=== PATIENT | male | born 1975 | race Caucasian/White ===

== ENCOUNTER 2024-09-20 14:55 | Emergency (ER) | payer OTHER, SELFPAY ==
[2024-09-20 14:59] VITALS: BP 162/106
[2024-09-20 15:56] VITALS: BMI 26.0
--- NOTE | 2024-09-20 16:42 | ED.GENMED ---
History of Present Illness
General
Chief Complaint: Musculo-Skeletal Complaint
Source: patient
Time Seen by Provider: 09/20/24 16:14
History of Present Illness
History of Present Illness:
49-year-old male with no significant past medical history presenting to the emergency department from outpatient x-ray which she had done ordered by his primary care provider for neck pain that he has been experiencing for the last 2-1/2 weeks.
Patient states his primary care's office told him that he needed to come to the emergency room for an MRI. Patient states that he was given naproxen and a muscle relaxant without much relief. States that he had been doing some heavy lifting prior
to the symptoms starting 2-1/2 weeks ago but denies any specific trauma. Patient does note pain will intermittently radiate down his left arm and have paresthesia to the left thumb, index and middle finger but does not have the paresthesia
currently. No headaches, fevers or infectious, visual disturbances, chest pain or any other concerns. Patient denies history of similar.
Past History
Past History
ED Past Medical History: None
ED Past Surgical History: None
Social History
Tobacco: Non-smoker
Alcohol: None
Drug: None
Personal: Single
Living: alone
Employment: Employed
Review of Systems
Review of Systems
All Other Systems: ROS reviewed and negative except as documented in HPI and ROS
Phy Exam
Physical Exam
Physical Exam:
GENERAL: Alert , in no apparent distress
EYE: conjunctiva clear
Head: Normocephalic atraumatic
NECK: Supple, no midline tenderness, limited range of motion especially when laterally turning to the left
ENT: mmm.
LUNGS: no acute respiratory distress
NEUROLOGICAL: Alert and oriented, moves all extremities x 4, 5 out of 5, bicep and tricep strength. 2+ biceps, triceps and brachioradialis deep tendon reflexes. Sensation grossly intact to light touch throughout all digits
SKIN: Warm and dry, skin intact.
MUSCULOSKELETAL: well perfused. Easily palpable radial pulse
PSYCH: Normal and appropriate interaction.
Scores
Heart Failure Risk
Heart Failure Risk Score: Not Applicable
Heart Score for Chest Pain Patients
STEMI patient?: Not applicable
Withdrawal Assessment of Alcohol
Withdrawal Assessment Completed?: Not applicable
Course
Vital Signs
Initial and Last Documented VS:
Initial Vital Signs
Temp Pulse Resp BP Pulse Ox
98.1 F 95 16 162/106 96
09/20/24 14:59 09/20/24 14:59 09/20/24 14:59 09/20/24 14:59 09/20/24 14:59
Last Documented Vital Signs
Temp Pulse Resp BP Pulse Ox
98.6 F 82 20 136/71 99
09/20/24 16:52 09/20/24 16:52 09/20/24 16:52 09/20/24 16:52 09/20/24 16:52
MDM/Problems Addressed
Differential Diagnosis Includes:
Disc herniation, nerve impingement, spinal stenosis, I do not have concern for infectious etiology
MDM/Problems Addressed:
49-year-old male presenting to the emergency department at the request of primary care provider after having x-ray done earlier today. Patient was unaware of these results. Based off my review it appears patient has degenerative disc disease at
C4-C7 with mild neuroforaminal narrowing. No fracture. Patient not exhibiting any acute neurologic claudication and is otherwise neurologically intact. At this time patient may need more advanced imaging but do not feel this needs to be completed
on an emergent basis. Patient expressed understanding. Will trial a steroid taper and Valium for muscle relaxation. Patient will follow-up with primary care provider. Information for orthopedics provided.
*Pulse Oximetry
Patient hypoxic: no
*Critical Care Note
Total Time (30-74mins, 75-104mins- exclusive of procedures): Not Applicable
Data Reviewed
Review of Other/Old Records Reveals: Records and Radiology Studies
ED Attending Note
-
Portions of this chart may have been created with voice recognition software.� Occasional wrong word or��sound alike� substitutions may have occurred due to the inherent limitations of voice recognition software.
Discharge Plan
Departure
Patient Disposition: Home (Routine Discharge)
Date of Disposition: 09/20/24
Time of Disposition: 16:42
Patient with high blood pressure during this ER visit?: Yes
Discharge Problem:
Cervical radiculopathy
Instructions: Neck Pain ED
Prescriptions:
New
methylprednisolone [Medrol (Ralf)] 4 mg tablets,dose pack
4 mg PO DIRECTED Qty: 21 0RF
diazepam [Valium] 5 mg tablet
5 mg PO BID PRN (Reason: muscle spasm) Qty: 6 0RF
Referrals:
Bowen Feldman MD [Active] - (Ortho - Call for appointment)
Hai Patel DO [Family Provider] -
Interventions
Interventions:
*Risk Screen - Suicide Last Done: 09/20/24 15:01
*General Assessment Last Done: 09/20/24 15:56
*Neglect/Abuse Screening Last Done: 09/20/24 15:01
ED- Fall Risk Assessment Last Done: 09/20/24 15:56
*ED COVID-19 Vaccine History Last Done: 09/20/24 15:01
*Nursing Disposition Last Done: 09/20/24 16:52
ED-Musculoskeletal Assessment Last Done: 09/20/24 15:56
Discharge Date and Time
Discharge Date/Time: 09/20/24 16:53
Print Language: MACEDONIAN
[2024-09-20 16:52] VITALS: BP 136/71
== END 2024-09-20 16:53 | disposition home or self-care (01) ==
LOC: EMR 14:55
PROVIDERS: EMERGENCY PHYSICIAN Student in an Organized Health Care Education/Training Program; FAMILY PHYSICIAN Family Medicine
DX: M54.12 Radiculopathy, cervical region (principal)
CPT/HCPCS: 99283; 72050

== ENCOUNTER → 2024-10-31 07:03 | Outpatient (REF) | payer OTHER, SELFPAY | LOC: MRI 07:03 | PROVIDERS: ATTENDING PHYSICIAN Physician Assistant; FAMILY PHYSICIAN Family Medicine | DX: M54.12 Radiculopathy, cervical region (principal) | CPT/HCPCS: 72141 ==